=== PATIENT | male | born 1990 | race Caucasian/White ===

== ENCOUNTER 2019-08-23 14:26 | Emergency (ER) | payer BC, SELFPAY ==
[2019-08-23 14:42] VITALS: BP 103/51; PULSE 90; RESP 16; TEMP 37.2; O2SAT 100
--- NOTE | 2019-08-23 14:48 | ED.URI ---
HPI - URI/Sore Throat General Chief Complaint: Upper Respiratory Infection Stated Complaint: Cold/Flu symptoms Time Seen by Provider: 08/23/19 14:49 Source: patient and RN notes reviewed Mode of arrival: ambulatory Limitations: no limitations History of Present Illness HPI Narrative: 29-year-old male presents with concern for fever, body aches, general malaise that started last night. Reports occasional shortness of breath, denies cough, sore throat, rhinorrhea, nasal congestion. MD elicited complaint: fever Related Data Allergies Allergy/AdvReac Type Severity Reaction Status Date / Time No Known Allergies Allergy Verified 08/23/19 14:48 Review of Systems Review of Systems: Narrative: CONSTITUTIONAL: Reports malaise, chills, sweats, or fever. EYES: Denies visual changes, redness, or discharge. ENT: Denies rhinorrhea, congestion, sinus pain, otalgia and sore throat. CARDIOVASCULAR: Denies chest pain, palpitations, or edema. RESPIRATORY: Denies cough or dyspnea. GASTROINTESTINAL: Denies abdominal pain, nausea, vomiting, diarrhea SKIN: Denies rash or itching. MUSCULOSKELETAL: Reports myalgia. NEUROLOGIC: Denies headache. All systems reviewed & are unremarkable except as noted in HPI and below PMFSH Comments At time of signature, agree with nursing past medical, surgical, social and family history. There is no relevant family history pertinent to the presenting complaint Exam Narrative: Exam Narrative: GENERAL: Well-appearing, well-nourished, and in no acute distress. HEAD: Normocephalic EYES: PERRLA, conjunctivae clear ENT: Nares clear, turbinates erythematous, clear discharge. Mucous membranes moist. TM pearly sosa with sharp light reflex bilaterally; no tragal tenderness. Oropharynx mildly erythematous without lesions. Tonsils not enlarged and without exudate, no drooling, no hoarseness, no trismus, uvula midline. NECK: Supple. No lymphadenopathy CHEST: Clear to auscultation, breath sounds equal. No wheezing, rhonchi, rales, or stridor. No respiratory distress, speaks in full sentences. HEART: Regular rate and rhythm. No murmur heard. SKIN: Warm, dry, no rash. NEURO: Alert and oriented x3. PSYCH: Normal mood and affect Course Course Emergency Course: Patient is aware of diagnosis, understands and agrees to treatment plan. Anticipatory guidance given. Patient agrees to follow-up as directed and is aware of reasons to seek care at the emergency department. Portions of this record may have been created with voice recognition software Vital Signs Vital signs: Vital Signs Temperature 98.9 F 08/23/19 14:42 Pulse Rate 90 08/23/19 14:42 Respiratory Rate 16 08/23/19 14:42 Blood Pressure 103/51 L 08/23/19 14:42 Pulse Oximetry 100 08/23/19 14:42 Temperature 98.9 F 08/23/19 14:42 Pulse Rate 90 08/23/19 14:42 Respiratory Rate 16 08/23/19 14:42 Blood Pressure 103/51 L 08/23/19 14:42 Pulse Oximetry 100 08/23/19 14:42 Reviewed. MDM - URI/Sore Throat MDM Narrative Medical decision making narrative: Differential diagnosis considered: Strep pharyngitis, allergic rhinitis, upper respiratory tract infection, sinusitis, rhinosinusitis, nasopharyngitis. viral pharyngitis, otitis media, otitis externa, pneumonia, bronchitis, viral cough syndrome, viral syndrome, and influenza. Exam findings show no acute concerns or changes; patient is non-toxic appearing and is in no distress. Patient is appropriate for outpatient treatment and follow-up. Lab Data Attestation: I reviewed the patient's lab results. Labs: Influenza A Screen Negative Reference Range: Negative Influenza B Screen Negative Reference Range: Negative Critical Care Time Critical Care Time Critical Care Time: No Discharge Plan Discharge Clinical Impression: Influenza-like illness Patient Disposition: Home, Self-Care Condition: Stable Instructions: Influenza (ED) Additional Instruc
== END 2019-08-23 15:11 | disposition home or self-care (01) ==
PROVIDERS: Emergency Provider Nurse Practitioner
DX: R50.9 Fever, unspecified (principal); R52 Pain, unspecified; R53.81 Other malaise; R06.02 Shortness of breath
CPT/HCPCS: 87804; 99203; G0463

== ENCOUNTER 2022-06-03 08:23 | Emergency (ER) | payer BC, SELFPAY ==
[2022-06-03 08:31] VITALS: BP 121/77; PULSE 79; RESP 16; TEMP 36.7; O2SAT 100
--- NOTE | 2022-06-03 08:57 | ED.NAVMDI ---
HPI - Nausea/Vomiting/Diarrhea General Chief complaint: Nausea/Vomiting/Diarrhea Stated complaint: Vomiting/Diarrhea Time Seen by Provider: 06/03/22 08:58 Source: patient and RN notes reviewed Mode of arrival: ambulatory Limitations: no limitations History of Present Illness HPI Narrative: 32-year-old male presents with concern for vomiting, diarrhea, nasal congestion, right-sided ear pain that started on Thursday. He denies taking any medications for his symptoms. He denies known sick contacts. He denies abdominal pain. MD elicited complaint: nausea, vomiting and diarrhea Related Data Allergies Allergy/AdvReac Type Severity Reaction Status Date / Time No Known Allergies Allergy Verified 08/23/19 14:48 Review of Systems Review of Systems: CONSTITUTIONAL: Reports malaise he denies chills, sweats, or fever. ENT: Reports rhinorrhea, congestion, right otalgia. Denies sore throat. CARDIOVASCULAR: Denies chest pain, palpitations, or edema. RESPIRATORY: Denies cough or dyspnea. GASTROINTESTINAL: Denies abdominal pain. Reports nausea, vomiting, diarrhea GENITOURINARY: Denies dysuria or hematuria. MUSCULOSKELETAL: Denies myalgia. NEUROLOGIC: Denies headache. All systems reviewed & are unremarkable except as noted in HPI and below PMFSH Comments At time of signature, agree with nursing past medical, surgical, social and family history. There is no relevant family history pertinent to the presenting complaint Exam Narrative: GENERAL: Well-appearing, well-nourished, and in no acute distress. HEAD: Normocephalic EYES: PERRLA, conjunctivae clear ENT: Nares clear, turbinates edematous and erythematous, clear discharge. Mucous membranes moist. Left TM pearly sosa with dull light reflex, right TM erythematous; no tragal tenderness. Oropharynx not erythematous without lesions. Tonsils not enlarged and without exudate, no drooling, no hoarseness, no trismus, uvula midline. NECK: Supple. No lymphadenopathy CHEST: Clear to auscultation, breath sounds equal. No wheezing, rhonchi, rales, or stridor. No respiratory distress, speaks in full sentences. HEART: Regular rate and rhythm. No murmur heard. SKIN: Warm, dry, no rash. NEURO: Alert and oriented x3. PSYCH: Normal mood and affect Course Course Emergency Course: Patient is aware of diagnosis, understands and agrees to treatment plan. Anticipatory guidance given. Patient agrees to follow-up as directed and is aware of reasons to seek care at the emergency department. Portions of this record may have been created with voice recognition software Level of Care: Express Care Visit Vital Signs Vital signs: Vital Signs Temperature 98.1 F 06/03/22 08:31 Pulse Rate 79 06/03/22 08:31 Respiratory Rate 16 06/03/22 08:31 Blood Pressure 121/77 06/03/22 08:31 Pulse Oximetry 100 06/03/22 08:31 Oxygen Delivery Room Air 06/03/22 08:31 Temperature 98.1 F 06/03/22 08:31 Pulse Rate 79 06/03/22 08:31 Respiratory Rate 16 06/03/22 08:31 Blood Pressure 121/77 06/03/22 08:31 Pulse Oximetry 100 06/03/22 08:31 Oxygen Delivery Room Air 06/03/22 08:31 Reviewed. MDM - Nausea/Vomiting/Diarrhea MDM Narrative Medical decision making narrative: Differential diagnosis considered: Temple virus, strep pharyngitis, allergic rhinitis, upper respiratory tract infection, sinusitis, rhinosinusitis, nasopharyngitis. viral pharyngitis, otitis media, otitis externa, pneumonia, bronchitis, viral cough syndrome, viral syndrome, and influenza. Exam findings show no acute concerns or changes; patient is non-toxic appearing and is in no distress. Patient is appropriate for outpatient treatment and follow-up. Critical Care Time Critical Care Time Critical Care Time: No Discharge Plan Discharge Clinical Impression: Viral illness, Otitis media Patient Disposition: Home, Self-Care Condition: Stable Instructions: Antibiotic Form, Ear Infection (ED) Additional Instr
== END 2022-06-03 09:11 | disposition home or self-care (01) ==
PROVIDERS: Emergency Provider Nurse Practitioner
DX: B34.9 Viral infection, unspecified (principal); H66.90 Otitis media, unspecified, unspecified ear
CPT/HCPCS: 99213; G0463

== ENCOUNTER 2022-07-23 08:04 | Emergency (ER) | payer BC, SELFPAY ==
[2022-07-23 08:10] VITALS: BP 133/68; PULSE 59; RESP 16; TEMP 36.7; O2SAT 100
--- NOTE | 2022-07-23 08:15 | ED.DENTAL ---
HPI - Dental/Oral General Chief complaint: Dental/Oral Stated complaint: Toothache Time Seen by Provider: 07/23/22 08:15 Source: patient Mode of arrival: ambulatory Limitations: no limitations History of Present Illness HPI Narrative: 32-year-old male presents with concern for right lower dental pain. Reports he has several broken teeth that have been broken for a long time, has been having pain that started several days ago in the right lower area. He reports swelling to the right lower jaw. He denies fever, trouble swallowing. Reports he has been taking ibuprofen and Tylenol Complaint: tooth pain Related Data Allergies Allergy/AdvReac Type Severity Reaction Status Date / Time No Known Allergies Allergy Verified 07/23/22 08:15 Review of Systems Review of Systems: CONSTITUTIONAL: Denies malaise, chills, sweats, or fever. EYES: Denies visual changes ENT: Denies rhinorrhea, congestion, sinus pain, otalgia or sore throat. Reports right lower dental pain and jaw swelling CARDIOVASCULAR: Denies chest pain, palpitations RESPIRATORY: Denies cough or dyspnea. SKIN: Denies rash or itching. MUSCULOSKELETAL: Denies myalgia. NEUROLOGIC: Denies numbness, weakness, or headache. All systems reviewed & are unremarkable except as noted in HPI and below PMFSH Comments At time of signature, agree with nursing past medical, surgical, social and family history. There is no relevant family history pertinent to the presenting complaint Exam Narrative: GENERAL: Well-appearing, well-nourished, and in no acute distress. HEAD: Normocephalic, atraumatic. EYES: PERRLA, sclera clear ENT: Nares clear, turbinates pink, no rhinorrhea or epistaxis. Mucous membranes moist. TM pearly sosa with sharp light reflex bilaterally; no tragal tenderness. Oropharynx without erythema or lesions. Tonsils not enlarged and without exudate. Missing teeth, broken teeth, caries. Tooth number 30 broken with surrounding erythema, no edema or abscess visible. Small Palpable abscess to the right jaw NECK: Supple. No lymphadenopathy. CHEST: No respiratory distress. Speaks in full sentences. HEART: Regular rate and rhythm. SKIN: Warm, dry, no visible rash. NEURO: Alert and oriented x3. PSYCH: Normal mood and affect Course Course Emergency Course: Patient is aware of diagnosis, understands and agrees to treatment plan. Anticipatory guidance given. Patient agrees to follow-up as directed and is aware of reasons to seek care at the emergency department. Portions of this record may have been created with voice recognition software Level of Care: Express Care Visit Vital Signs Vital signs: Vital Signs Temperature 98.1 F 07/23/22 08:10 Pulse Rate 59 L 07/23/22 08:10 Respiratory Rate 16 07/23/22 08:10 Blood Pressure 133/68 07/23/22 08:10 Pulse Oximetry 100 07/23/22 08:10 Oxygen Delivery Room Air 07/23/22 08:10 Temperature 98.1 F 07/23/22 08:10 Pulse Rate 59 L 07/23/22 08:10 Respiratory Rate 16 07/23/22 08:10 Blood Pressure 133/68 07/23/22 08:10 Pulse Oximetry 100 07/23/22 08:10 Oxygen Delivery Room Air 07/23/22 08:10 Reviewed. MDM - Dental/Oral MDM Narrative Medical decision making narrative: Patients pain and complaint coupled with physical findings are consistant with dentalgia. There are no focal signs of space occupying lesions that are compromising to the airway; no dysphagia, odynophagia, dysphonia, or dyspnea. No uvular deviation or soft palate edema. Patient is non-toxic appearing. The floor of the mouth is soft with no signs of Jonathon's Angina; no induration below mandible, no neck pain. Patient is without trismus or drooling and able to swallow secretions. Patient is felt appropriate for discharge home with dental follow up. Differential Diagnosis Differential diagnosis: Likely gingival abscess, dental caries, toothache, dental abscess, fracture of tooth and aphthous ulcer Critical Care Time Critical
== END 2022-07-23 08:25 | disposition home or self-care (01) ==
PROVIDERS: Emergency Provider Nurse Practitioner; PCP Emergency Medicine
DX: K04.7 Periapical abscess without sinus (principal)
CPT/HCPCS: 99213; G0463

== ENCOUNTER 2024-09-16 10:43 | Outpatient (CLI) | payer BC, SELFPAY ==
--- NOTE | 2024-09-16 11:25 | EST_ITS ---
Patient Info Name: Uri Aragon Age: 34 years : 1990 Gender: Male Ht: 72 in Wt: 180 lbs BSA: 2.04 m2 HR: 56 bpm BP: 132 / 76 mmHg Exam Date: 09/16/2024 11:40 AM Exam Location: Echo Lab Patient Status: Outpatient Admit Date: 09/16/2024 Staff Ordering Physician: Carlos Davies DO Attending Provider: Carlos Davies DO Exercise Technologist: yesenia chaparro Exercise Physician: Carlos Davies DO Exam Type: CA stress test treadmill Study Info Indications R07.89 - Other chest pain A treadmill exercise stress test was performed. Summary 1. 1. Negative Mahesh exercise stress test for ischemic ST changes by ECG criteria. 2. 2. Good functional capacity, achieving 12 METs of workload. 3. 3. Appropriate HR response to exercise. 4. 4. Appropriate HR recovery at 1 minute post exercise. 5. 5. No imaging with stress testing. 6. 6. Patient informed of the above results. Protocol: Mahesh Stress ECG Details Stage: REST Duration (min): 2 min : 19 sec Speed (mph): 0.0 Grade (%): 0 HR (bpm): 65 SBP (mmHg): 132 DBP (mmHg): 76 METS: --- Stage: REST Duration (min): 4 min : 33 sec Speed (mph): 0.0 Grade (%): 0 HR (bpm): 75 SBP (mmHg): 132 DBP (mmHg): 76 METS: --- Stage: STAGE 1 Duration (min): 1 min : 0 sec Speed (mph): 1.7 Grade (%): 10 HR (bpm): 113 SBP (mmHg): 132 DBP (mmHg): 76 METS: --- Stage: STAGE 1 Duration (min): 2 min : 0 sec Speed (mph): 1.7 Grade (%): 10 HR (bpm): 108 SBP (mmHg): 132 DBP (mmHg): 76 METS: --- Stage: STAGE 1 Duration (min): 3 min : 0 sec Speed (mph): 1.7 Grade (%): 10 HR (bpm): 116 SBP (mmHg): 173 DBP (mmHg): 62 METS: --- Stage: STAGE 2 Duration (min): 1 min : 0 sec Speed (mph): 2.5 Grade (%): 12 HR (bpm): 126 SBP (mmHg): 173 DBP (mmHg): 62 METS: --- Stage: STAGE 2 Duration (min): 2 min : 0 sec Speed (mph): 2.5 Grade (%): 12 HR (bpm): 133 SBP (mmHg): 170 DBP (mmHg): 64 METS: --- Stage: STAGE 2 Duration (min): 3 min : 0 sec Speed (mph): 2.5 Grade (%): 12 HR (bpm): 131 SBP (mmHg): 170 DBP (mmHg): 64 METS: --- Stage: STAGE 3 Duration (min): 1 min : 0 sec Speed (mph): 3.4 Grade (%): 14 HR (bpm): 148 SBP (mmHg): 169 DBP (mmHg): 70 METS: --- Stage: STAGE 3 Duration (min): 2 min : 0 sec Speed (mph): 3.4 Grade (%): 14 HR (bpm): 160 SBP (mmHg): 169 DBP (mmHg): 70 METS: --- Stage: STAGE 3 Duration (min): 3 min : 0 sec Speed (mph): 3.4 Grade (%): 14 HR (bpm): 117 SBP (mmHg): 196 DBP (mmHg): 65 METS: --- Stage: STAGE 4 Duration (min): 1 min : 0 sec Speed (mph): 4.2 Grade (%): 16 HR (bpm): 179 SBP (mmHg): 196 DBP (mmHg): 65 METS: --- Stage: STAGE 4 Duration (min): 1 min : 0 sec Speed (mph): 4.2 Grade (%): 16 HR (bpm): 179 SBP (mmHg): 196 DBP (mmHg): 65 METS: --- Stage: RECOVERY Duration (min): 0 min : 59 sec Speed (mph): 0.0 Grade (%): 0 HR (bpm): 146 SBP (mmHg): 208 DBP (mmHg): 63 METS: --- Stage: RECOVERY Duration (min): 1 min : 59 sec Speed (mph): 0.0 Grade (%): 0 HR (bpm): 128 SBP (mmHg): 208 DBP (mmHg): 63 METS: --- Stage: RECOVERY Duration (min): 2 min : 59 sec Speed (mph): 0.0 Grade (%): 0 HR (bpm): 86 SBP (mmHg): 151 DBP (mmHg): 61 METS: --- Stage: RECOVERY Duration (min): 3 min : 59 sec Speed (mph): 0.0 Grade (%): 0 HR (bpm): 100 SBP (mmHg): 151 DBP (mmHg): 61 METS: --- Stage: RECOVERY Duration (min): 4 min : 0 sec Speed (mph): 0.0 Grade (%): 0 HR (bpm): 99 SBP (mmHg): 151 DBP (mmHg): 61 METS: --- Rest HR: 75 bpm Peak HR: 180 bpm Rest Sys BP: 132 mmHg Peak Sys BP: 208 mmHg Max Pred HR: 184 bpm % Max Pred HR: 98 % Target HR: 156 bpm Max RPP: 37,440 bpm*mmHg Lockwood Score: -27 Termination Reason: Reached target heart rate or workload Cardiac Symptoms: Baseline cp / unchanged with exercise Max ST Seg Deviation: 7.40 mm Total Time: 10 min : 0 sec Rest Wright BP: 76 mmHg Peak Wright BP: 63 mmHg Angina Score: None Total METS: 12.1 Resting ECG Sinus rhythm. Stress ECG No ST changes. Arrhythmias None. Report Signatures
--- OUTSIDE RECORDS SUMMARY | 2024-09-16 11:26 | XMS_ITS | Clinical Summary ---
Author Organization [facility] Address [address] [place] [address] Phone Care Team Providers Care Director Gift Name Role Phone Guanakito Montaño MD Primary Care Provider [phone] Allergies Active Allergy Reactions Criticality Noted Date Comments Fentanyl Other (see Comments) Low 05/26/2018 Anger issues Medications No known medications Active Problems Problem Noted Date Diagnosed Date Hyperlipidemia, mixed 06/15/2023 Resolved Problems Problem Noted Date Diagnosed Date Resolved Date MRSA infection 05/26/2018 10/19/2023 Prepatellar bursitis of left knee 05/24/2018 10/19/2023 Overview (10/19/2023): Last Assessment & Plan: Prepatellar bursitis, likely infected. S/p I&D Immunizations Immunization Administration Dates Next Due Hepatitis A Vaccine 12/29/2006 Inactivated Polio Vaccine 12/29/2006 Influenza Vaccine, Quadrivalent, PF 04/16/2020 Meningococcal Vaccine 12/29/2006 TD VACCINE 12/29/2006 Varicella Vaccine Live 01/29/2007,12/29/2006 Family History Medical History Relation Name Comments No Known Problems Brother half sibling No Known Problems Father Coronary Artery Disease Maternal Aunt High Cholesterol Maternal Aunt Hypertension Maternal Aunt Polycystic Kidney Disease Maternal Aunt Hypertension Maternal Grandfather Aneurysm Maternal Grandmother Chronic Obstructive Pulmonar y Disease Maternal Grandmother Congestive Heart Failure Maternal Grandmother Heart Attack Maternal Grandmother Heart Disease Maternal Grandmother Heart Surgery Maternal Grandmother High Cholesterol Maternal Grandmother Hypertension Maternal Grandmother Renal Failure Maternal Grandmother Other-comment Maternal Uncle diverticulit is Breast Cancer Mother Cancer Mother skin Cervical Cancer Mother Coronary Artery Disease Mother Heart Disease Mother Other-comment Mother tremors No Known Problems Sister half sibling Relation Name Status Comments Brother half sibling Alive Father Alive Maternal Aunt Alive Maternal Grandfather Alive Maternal Grandmother Alive Maternal Uncle Alive Mother Alive Paternal Grandfather Paternal Grandmother Alive Sister half sibling Alive Social History Tobacco Use Types Packs/Day Years Used Date Smoking Tobacco: Former Cigarettes 2 - 06/2023 Smokeless Tobacco: Never Tobacco Cessation:Counseling Given: Not Answered Comments:down to a 1/2 pack Alcohol Use Standard Drinks/Week Comments Yes 0 (1 standard drink = 0.6 oz pur e alcohol) Once a month PHQ-2 Answer Date Recorded Total Score - Questions 1-9 0 07/2019 Education Answer Date Recorded What is the highest level of school you have completed or the highest degree you have received? GED or equivalent 07/2019 Sexually Active Control Partners Comments Yes Male Condom Female Sex and Gender Information Value Date Recorded Sex Assigned at Not on file Legal Sex Male 9:55 PM CDT Gender Identity Not on file Sexual Orientation Not on file Last Filed Vital Signs Vital Sign Reading Time Taken Comments Blood Pressure 116/68 11/11/2023 2:12 PM CDT Pulse 75 11/11/2023 2:12 PM CDT Temperature 36.8 C (98.2 F) 11/11/2023 2:12 PM CDT Respiratory Rate 18 11/11/2023 2:12 PM CDT Oxygen Saturation 98% 11/11/2023 2:12 PM CDT Inhaled Oxygen Concentration - - Weight 78.9 kg (174 lb) 11/11/2023 2:12 PM CDT Height 182.9 cm (6') 11/11/2023 2:12 PM CDT Body Mass Index 23.6 11/11/2023 2:12 PM CDT Plan of Treatment Health Maintenance Due Date Last Done Comments TdaP Immunization 1990 Hepatitis B Immunization (1 of 3 - 19+ 3-dose series) 2007 Influenza Immunization (#1) 2024 04/16/2020 SARS-COV-2 Immunization (2023- season) 2024 Respiratory Syncytial Virus (RSV) Immunization (Adult) ( - 1-dose 75+ series) 2063 DTaP/Tdap/Td Immunization Discontinued 12/29/2006 Meningococcal Immunization (ACWY) Completed 007 Hepatitis C Virus (HCV) Screening Completed 024 Pneumococcal Immunization Combined Aged Out No longer eligible b ased on patient's age to complete this topic Rotavirus Immunization Aged Out No lo nger eligible based on patient's age to complete this topic Procedures Procedure Name Priority Date/Time Associated Diagnosis Comments HEPATITIS C ANTIBODY Routine 10/20/2023 8:56 AM CDT Encounter for hepatitis C screening test for low risk patient from Last 3 Months or Most Recently Relevant to Health Maintenance Results * HEPATITIS C ANTIBODY (10/20/2023 8:56 AM CDT) hepatitis C antibody 0.07 <1 S/CO 10/20/2023 9:40 PM CDT [facility] Comment: Signal/Cutoff ratio < 0.79 is Nondetected Signal/Cutoff ratio 0.80-0.99 is Grayzone Signal/Cutoff ratio > 0.99 is Detected Supplemental assays are recommended if signal/cutoff ratio is >/=1.00. Signal/cutoff ratio result >/= 5.00 is 97% predictive of positivity for recombinant immunoblot assay (RIBA) and will be reported to the [place] Department of Public Health as required. Blood Venipuncture / Unknown 10/20/2023 8:56 AM CDT 10/20/2023 8:56 AM CDT us Guanakito Montaño MD CHEMISTRY ORDERABLES Maeve l Result [facility] [address] [place] [address], [place] from Last 3 Months or Most Recently Relevant to Health Maintenance Care Teams Director Gift Relationship Specialty Start Date End Date Guanakito Montaño MD [address] [place] [address] PCP - General Internal Medicine 10/19/23
--- OUTSIDE RECORDS SUMMARY | 2024-09-16 11:26 | XMS_ITS | Clinical Summary ---
Author Organization [facility] Address [address] [place] [address] Care Team Providers Care Grading Supervisor Name Role Phone No, Physician Primary Care Provider [phone] Allergies Active Allergy Reactions Criticality Noted Date Comments Fentanyl Agitation Low 05/26/2018 Medications acetaminophen (TYLENOL) 325 mg tablet Take 650 mg by mouth every 6 (six) hours as needed for pain. Active Active Problems Problem Noted Date Diagnosed Date Orthopedic aftercare 06/11/2018 MRSA infection 05/26/2018 Prepatellar bursitis of left knee 05/24/2018 Assessment & Plan (05/26/2018 7:22 PM THREAT MONITORING ANALYST): Prepatellar bursitis, likely infected. S/p I&D Smoker 05/24/2018 Assessment & Plan (05/24/2018 5:19 AM THREAT MONITORING ANALYST): Discussed and encouraged smoking cessation. Start on Nicoderm patch Resolved Problems Problem Noted Date Diagnosed Date Resolved Date Hypokalemia 05/24/2018 05/26/2018 Assessment & Plan (05/24/2018 5:17 AM THREAT MONITORING ANALYST): Will replete with KCl 40 mcg Q x1 Repeat BMP in a.m.. Surgical History Surgery Date Site/Laterality Comments KNEE SURGERY Family History Medical History Relation Name Comments No Known Problems Brother No Known Problems Daughter No Known Problems Father No Known Problems Mother No Known Problems Sister No Known Problems Son Relation Name Status Comments Brother Daughter Father Mother Sister Son Social History Tobacco Use Types Packs/Day Years Used Date Smoking Tobacco: Every Day Cigarettes Smokeless Tobacco: Never Alcohol Use Standard Drinks/Week Comments Yes 0 (1 standard drink = 0.6 oz pur e alcohol) Sex and Gender Information Value Date Recorded Sex Assigned at Not on file Legal Sex Male 4:49 PM THREAT MONITORING ANALYST Gender Identity Not on file Sexual Orientation Not on file Obstetrics History Last Filed Vital Signs Vital Sign Reading Time Taken Comments Blood Pressure 118/74 01/28/2022 3:30 PM CDT Pulse 56 01/28/2022 3:30 PM CDT Temperature 36.7 C (98.1 F) 01/28/2022 12:46 PM CDT Respiratory Rate 16 01/28/2022 12:4 6 PM CDT Oxygen Saturation 99% 01/28/2022 3:30 PM CDT Inhaled Oxygen Concentration - - Weight 74.8 kg (164 lb 14.5 oz) 022 12:46 PM CDT Height 182.9 cm (6') 01/28/2022 12:46 PM CDT Body Mass Index 22.37 01/28/2022 12:46 PM CDT Plan of Treatment Health Maintenance Due Date Last Done Comments Depression Screening 1990 Hepatitis C Screening 1990 DTaP/Tdap/Td Vaccine (5 - Tdap) 1999 01/29/1994, 11/11/1989, 09/18/1989, Additional history exists Varicella Vaccines (1 of 2 - 13+ 2-dose series) 2001 Hepatitis B Screening 2006 Regular Well Visit/Exam 18-64 2006 Pneumococcal vaccine <65 (1 of 2 - PCV) 2007 Influenza Vaccine (#1) 2024 04/16/2020 HPV Vaccines Aged Out No longer eligi ble based on patient's age to complete this topic Insurance [facility] ACCESS Advance Directives For more information, please contact: [phone] * Full Code (Latest Code Status on File) Date Activated Date Inactivated Comments 05/24/2018 1:05 AM 05/26/2018 8:22 PM * Full Code Date Activated Date Inactivated Comments 05/23/2018 10:45 PM 05/24/2018 1:05 AM Care Teams Grading Supervisor Relationship Specialty Start Date End Date No, Physician PCP - General 10/17/19
--- OUTSIDE RECORDS SUMMARY | 2024-09-16 11:26 | XMS_ITS | Referral Summary ---
Author Organization [facility] Address [address] [place] [address] Care Team Providers Care [employer] Torque Tester Name Role Phone No, Physician Primary Care Provider [phone] Allergies Active Allergy Reactions Criticality Noted Date Comments Fentanyl Agitation Low 05/26/2018 Medications acetaminophen (TYLENOL) 325 mg tablet Take 650 mg by mouth every 6 (six) hours as needed for pain. Active Active Problems Problem Noted Date Diagnosed Date Orthopedic aftercare 06/11/2018 MRSA infection 05/26/2018 Prepatellar bursitis of left knee 05/24/2018 Assessment & Plan (05/26/2018 7:22 PM MORTGAGE PROCESSOR): Prepatellar bursitis, likely infected. S/p I&D Smoker 05/24/2018 Assessment & Plan (05/24/2018 5:19 AM MORTGAGE PROCESSOR): Discussed and encouraged smoking cessation. Start on Nicoderm patch Resolved Problems Problem Noted Date Diagnosed Date Resolved Date Hypokalemia 05/24/2018 05/26/2018 Assessment & Plan (05/24/2018 5:17 AM MORTGAGE PROCESSOR): Will replete with KCl 40 mcg Q x1 Repeat BMP in a.m.. Social History Tobacco Use Types Packs/Day Years Used Date Smoking Tobacco: Every Day Cigarettes Smokeless Tobacco: Never Alcohol Use Standard Drinks/Week Comments Yes 0 (1 standard drink = 0.6 oz pur e alcohol) Sex and Gender Information Value Date Recorded Sex Assigned at Not on file Legal Sex Male 4:49 PM MORTGAGE PROCESSOR Gender Identity Not on file Sexual Orientation [...] 01/28/2022 12:46 PM CDT Plan of Treatment Not on file [place] [address] [place] [address] Advance Directives For more information, please contact: [phone] * Full Code (Latest Code Status on File) Date Activated Date Inactivated Comments 05/24/2018 1:05 AM 05/26/2018 8:22 PM * Full Code Date Activated Date Inactivated Comments 05/23/2018 10:45 PM 05/24/2018 1:05 AM Care Teams [employer] Tor[employer] Tester Relationship Specialty Start Date End Date No, Physician PCP - General 10/17/19
--- OUTSIDE RECORDS SUMMARY | 2024-09-16 11:26 | XMS_ITS ---
Author Organization [facility] Address [address] [place] [address] Phone Care Team Providers Care Jigman Name Role Phone Guanakito Montaño MD Primary Care Provider [phone] [facility] Status:Enrolled (Active) Start date:07/13/2024 Enrollment date:07/13/2024 Related social drivers of health:Social Connections, Alcohol Use, Tobacco Use, Financial Resource Strain, Stress, Physical Activity,Food Insecurity, Transportation Needs, Housing Stability, Utilities Continued Care and Services Coordination
== END 2024-09-16 10:44 | disposition home or self-care (01) ==
PROVIDERS: PCP Emergency Medicine; Visit Provider Internal Medicine Cardiovascular Disease
DX: R07.89 Other chest pain (principal)
CPT/HCPCS: 93017